=== PATIENT | male | born 1980 | race Caucasian/White ===

== ENCOUNTER 2019-07-12 09:00 | Emergency (ER) | payer OTHER ==
[2019-07-12 09:20] VITALS: BP 128/91; PULSE 99
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
== END 2019-07-12 10:13 | disposition home or self-care (01) ==
LOC: MW.ED 09:00
DX: Z77.21 Contact with and (suspected) exposure to potentially hazardous body fluids (principal)
CPT/HCPCS: 36415; 86706; 86803; 87340; 87389; 99282; 99283

== ENCOUNTER 2020-09-30 07:15 | Day surgery (SDC) | payer OTHER ==
[~2020-09-30 07:15] MED LIST: Lactated Ringers 1,000 ML IV SCH; Lidocaine 2% 5 ML SDV ONE; Midazolam 1 MG/ML 2 ML SDV ONE; Propofol 200 MG/20 ML SDV ONE; fentaNYL 100 MCG/2 ML SDV ONE
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
[2020-09-30] MEDS ORDERED: Propofol 200 MG/20 ML SDV ONE (09:10)
--- NOTE | 2020-09-30 10:21 | PCM.OPNOTE ---
- General Post-Op/Procedure Note Date of Surgery/Procedure: 09/30/20 Operative Procedure(s): colonoscopy with polypectomy. EGD with biopsies Findings: minimal duodenitis and gastritis Stomach polyps Colon polyps dictation number [id number] Pre Op Diagnosis: blood emesis. changing bowel habits Post-Op Diagnosis: minimal duodenitis and gastritis. Stomach polyps. Colon polyps Primary Surgeon: Andrez Melendez Complications: None Condition: Good
[2020-09-30 10:55] VITALS: BP 119/74; PULSE 60
--- NOTE | 2020-09-30 11:00 | PCM.POSTAN ---
POST ANESTHESIA ASSESSMENT - MENTAL STATUS Mental Status: Alert (no anesthetic problems), Oriented - VITAL SIGNS Vital Signs: Last Vital Signs Temp 97.2 F 09/30/20 10:42 Pulse 60 09/30/20 10:42 Resp 15 09/30/20 10:42 BP 119/74 09/30/20 10:42 Pulse Ox 98 09/30/20 10:42 - RESPIRATORY Respiratory Status: Respiratory Rate WNL, Airway Patent, O2 Saturation Stable - CARDIOVASCULAR CV Status: Pulse Rate WNL, Blood Pressure Stable - GASTROINTESTINAL GI Status: No Symptoms - POST OP HYDRATION Hydration Status: Adequate & Stable
--- NOTE | 2020-09-30 12:41 | PCM48HPAN ---
Post Anesthesia Note - EVALUATION WITHIN 48HRS OF ANESTHETIC Vital Signs in Normal Range: Yes Patient Participated in Evaluation: Yes Respiratory Function Stable: Yes Airway Patent: Yes Cardiovascular Function Stable: Yes Hydration Status Stable: Yes Pain Control Satisfactory: Yes Nausea and Vomiting Control Satisfactory: Yes Mental Status Recovered: Yes Vital Signs: Last Vital Signs Temp 97.2 F 09/30/20 10:42 Pulse 60 09/30/20 10:42 Resp 15 09/30/20 10:42 BP 119/74 09/30/20 10:42 Pulse Ox 98 09/30/20 10:42
--- NOTE | 2020-09-30 18:23 | OR ---
SURGEON: OSCAR ELLIS MD DATE OF PROCEDURE: 09/30/2020 PREOPERATIVE DIAGNOSES: 1. History of vomiting up blood. 2. Changing bowel habits. 3. Weight loss. PROCEDURES PERFORMED: 1. Esophagogastroduodenoscopy with biopsy. 2. Colonoscopy with polypectomy. PRIMARY SURGEON: Oscar Ellis MD ANESTHESIA: With the anesthesiologist. EXTENT OF THE COLONOSCOPY: To the cecum. EXTENT OF THE ESOPHAGOGASTRODUODENOSCOPY: To the second part of the duodenum. BOWEL PREP: Very good. LIMITATIONS: None. POSTOPERATIVE DIAGNOSES: 1. Some minimal gastritis and duodenitis. 2. Two small stomach polyps. 3. One small colon polyp, likely hyperplastic. REASON FOR PROCEDURE: The patient is a pleasant 40-year-old gentleman who says that several weeks ago, he had an episode of bloody emesis. He was treated with a PPI and Carafate. He says he was feeling back to normal. He says he does get this issue with bloody emesis every once in a while. He has had about three to four episodes over the last 14 years. He says it always has been related to a stomach ulcer. He also says his stools were a little bit looser at the time, but now have come back to normal. He also had a slight weight loss. The patient says he is now gaining weight again. PROCEDURE IN DETAIL: Physical exam was performed. Major risks and benefits associated with procedure were explained in detail to the patient. The patient verbalized understanding and is in agreement of the same. The patient was connected to the appropriate monitoring devices and IV was started. EKG, pulse oximetry, blood pressure, and capnography were monitored throughout the procedure. Continuous oxygen and sedation were provided by the anesthesiologist. The patient was placed left lateral decubitus position and sedation began. After adequate sedation was achieved, an upper endoscope was advanced under direct visualization without difficulty in the upper GI tract. The anatomy and mucosa of the esophagus, GE junction, stomach, pylorus, and at least the second part of the duodenum were inspected. Second part of the duodenum appeared normal. Pulling back in the first part of duodenum, some slight irritation, some minimal duodenitis. Did do some biopsies of this. The scope was brought into the stomach. The patient did have a small amount of tissue buildup, maybe getting a polyp right at the pylorus, and this was removed with a biopsy forceps. Both retro and antegrade views of the stomach were done. Had some minimal gastritis in the antrum area. Did do another biopsy of the antrum to check for H pylori. The patient did have two polyps in the stomach. These were small. These were also removed with cold biopsy polypectomy. Scope was brought through the GE junction. Did have a good squamocolumnar junction. His GE junction was approximately 38 cm from the incisor. Scope was brought back into the stomach. The stomach was desufflated. Scope was brought to the esophagus. Esophagus appeared normal. Scope was completely removed and the procedure was terminated. Now, gloves and scopes were changed. Now, a rectal exam was performed. No rectal masses or polyps were felt. Now, a well-lubricated Olympus colonoscope was inserted into the rectum and advanced under direct visualization to the cecum. Cecum was identified by both visual and anatomic landmarks. Photographs were taken of the cecal cap. Scope was then slowly withdrawn in somewhat circular fashion looking at the color, texture, anatomy, and integrity of the mucosa from the cecum to the anal canal. The patient did have some liquid stool which was suctioned and irrigated out for a good look at the mucosa. The patient did have a small polyp at about 20 cm, this was removed with cold biopsy polypectomy. This looked to be more of a hyperplastic polyp. The scope was then retroflexed in the rectum. Scope was then completely removed and the procedure was terminated. ENDOSCOPIC DIAGNOSES: 1. Some minimal duodenitis and gastritis. 2. Stomach polyp x2. 3. Small colon polyp at 20 cm, likely hyperplastic. RECOMMENDATIONS: 1. Followup colonoscopy will depend on pathology, but most likely he will need another one in five to 10 years. 2. The patient will follow up in the clinic to go over his EGD pathology. The patient should continue taking his PPI. JESSIE / AMALIA /[id number]
== END 2020-09-30 11:20 | disposition home or self-care (01) ==
LOC: MW.SDS 07:15
PROVIDERS: ATTEND Surgery
DX: K63.5 Polyp of colon (principal); K29.90 Gastroduodenitis, unspecified, without bleeding; K31.7 Polyp of stomach and duodenum; Z79.899 Other long term (current) drug therapy; Z98.890 Other specified postprocedural states
CPT/HCPCS: 43239; 45380; 88305; 88312; J2250; J2704; J3010; J7120; 00813

== ENCOUNTER 2020-12-03 03:59 | Emergency (ER) | payer OTHER ==
[2020-12-03] MEDS ORDERED: Ketorolac 15 MG/ML SDV IM ONE (04:14)
[2020-12-03 04:20] VITALS: BP 124/82; PULSE 91
--- NOTE | 2020-12-03 04:46 | EDM.PDOC ---
ED HPI GENERAL MEDICAL PROBLEM - General Chief Complaint: Lower Extremity Injury/Pain Stated Complaint: RIGHT FOOT PAIN Time Seen by Provider: 12/03/20 04:04 - History of Present Illness INITIAL COMMENTS - FREE TEXT/NARRATIVE: CHIEF COMPLAINT(S): Right foot pain HISTORY OF PRESENT ILLNESS: This is a 40-year-old man without any significant past medical history who comes to the emergency department with a chief complaint of right foot pain. The patient states that last night he was at his softball game when he was running he felt a pop near his right big toe and has been experiencing pain since then. He states that he went to work however he had to use both of his feet to drive his vehicle. He denies any numbness, tingling or weakness. He states that he has been able to ambulate on it although it is painful. He states that his pain is 8 out of 10 without any radiation and describes it as sharp/achy. He states that he took ibuprofen and Aleve without any significant relief. He has not iced it yet. He denies any other injury or pain. Denies any swelling, bruising, redness or deformity. REVIEW OF SYSTEMS: Skin:Denies a rash, bruising MSK: Positive for right foot pain and right big toe pain neurological: Denies numbness, tingling, weakness PAST MEDICAL HISTORY: As per history of present illness and as reviewed below otherwise noncontributory. SURGICAL HISTORY: As per history of present illness and as reviewed below otherwise noncontributory. SOCIAL HISTORY: As per history of present illness and as reviewed below otherwise noncontributory. FAMILY HISTORY: As per history of present illness and as reviewed below otherwise noncontributory. EXAMINATION OF ORGAN SYSTEMS/BODY AREAS: Constitutional: Blood pressure is 124/82, heart rate 91, respiratory rate 18 with an oxygen saturation 96% on room air. Temperature 36.4 General: Well-appearing man who is in no acute distress Psychiatric: Appropriate mood and affect. Eyes: No scleral icterus or conjunctival erythema ENMT: Moist mucous membranes. No pharyngeal erythema Cardiovascular: Regular, rate, and rhythm. No gallops, murmurs, or rubs. Bilateral upper extremity and lower extremity pulses symmetric and intact. Musculoskeletal: The patient is able to flex and extend at the ankle. There is no medial or lateral malleoli or tenderness. There is no base of the fifth metatarsal tenderness of the right foot. There is tenderness to palpation along the big toe on the medial side and inferior side. There is some swelling to the base of the right big toe without bruising. No obvious deformity. The patient can flex the big toe but is having difficulty with extension secondary to pain Skin: No lesions or abrasions. Neurological: Alert, GCS 15 distal sensation is intact. MEDICAL DECISION MAKING AND COURSE IN THE ED WITH INTERPRETATION/REVIEW OF DIAGNOSTIC STUDIES: This is a 40-year-old man without any significant past medical history who comes to the emergency department with right foot pain after an injury while at baseball. There is some tenderness along the right big toe without any obvious deformity. Will obtain a ankle and foot x-ray. I did offer the patient Toradol, Tylenol and other pain medications and he did not want any at this time. Therefore I provided the patient with ice. The radiological images were viewed by myself along with reading the report from the radiologist. Right foot x-ray does not reveal any fracture or dislocation. Right ankle x-ray does not reveal any fracture or dislocation. After imaging I did discuss with the patient that I do believe he is experiencing what is called turf toe. I did discuss limitations, use of RICE. I did provide the patient with a work excuse so that he can rest through the weekend. He is to use scheduled Tylenol and Motrin for pain relief. If there is no improvement he needs to follow-up with podiatry for further evaluation and treatment. He was amenable discharge at this time and had no further questions. DISPOSITION: The patient was discharged home in stable condition. The patient will follow up with podiatry within 1 week if needed CONDITION: Fair PROCEDURES: None FINAL IMPRESSION(S)/DIAGNOSES: 1. Acute right turf toe Jorgito Oshea M.D. Right Foot Pain Score (Numeric/FACES): 8 - Related Data Allergies Allergy/AdvReac Type Severity Reaction Status Date / Time No Known Allergies Allergy Verified 12/03/20 04:13 Home Meds: Home Meds . [No Known Home Meds] 12/03/20 [History] Past Medical History - Past Health History Medical/Surgical History: Denies Medical/Surgical History HEENT History: Reports: None Cardiovascular History: Reports: None Respiratory History: Reports: None Gastrointestinal History: Reports: Other (See Below) Other Gastrointestinal History: stomach ulcer Genitourinary History: Reports: None Musculoskeletal History: Reports: Fracture, Other (See Below) Other Musculoskeletal History: hx fx ribs, arms, leg and collarbone Neurological History: Reports: Concussion Psychiatric History: Reports: None, PTSD Endocrine/Metabolic History: Reports: None Hematologic History: Reports: None Immunologic History: Reports: None Oncologic (Cancer) History: Reports: None Dermatologic History: Reports: None - Infectious Disease History Infectious Disease History: Reports: None - Past Surgical History Head Surgeries/Procedures: Reports: None HEENT Surgical History: Reports: None Cardiovascular Surgical History: Reports: None Respiratory Surgical History: Reports: None GI Surgical History: Reports: Hernia, Inguinal Other GI Surgeries/Procedures: shefali inguinal hernia repair as a infant Male Surgical History: Reports: None Endocrine Surgical History: Reports: None Neurological Surgical History: Reports: None Musculoskeletal Surgical History: Reports: Arthroscopic Knee Other Musculoskeletal Surgeries/Procedures:: hx closed reduction of fx, hx knee arthroscopy Oncologic Surgical History: Reports: None Dermatological Surgical History: Reports: None Social & Family History - Family History Family Medical History: No Pertinent Family History - Caffeine Use Caffeine Use: Reports: Coffee, Energy Drinks, Soda - Recreational Drug Use Recreational Drug Use: No Review of Systems - Review of Systems Review Of Systems: See Below ED EXAM, GENERAL - Physical Exam Exam: See Below Course - Vital Signs Last Recorded V/S: Last Vital Signs Temp 36.4 C 12/03/20 04:02 Pulse 91 12/03/20 04:02 Resp 18 12/03/20 04:02 BP 124/82 12/03/20 04:02 Pulse Ox 96 12/03/20 04:02 - Orders/Labs/Meds Meds: Medications Discontinued Medications Generic Name Dose Route Start Last Admin Trade Name Freq PRN Reason Stop Dose Admin Ketorolac Tromethamine 30 mg 12/03/20 04:14 Ketorolac 15 Mg/Ml Sdv IM 12/03/20 04:15 ONETIME ONE Departure - Departure Time of Disposition: 05:20 Disposition: Home, Self-Care 01 Clinical Impression: Turf toe of right foot - Discharge Information *PRESCRIPTION DRUG MONITORING PROGRAM REVIEWED*: No *COPY OF PRESCRIPTION DRUG MONITORING REPORT IN PATIENT FIONA: No Instructions: Turf Toe Referrals: PCP,None [Primary Care Provider] - Forms: ED Department Discharge Additional Instructions: You were evaluated today on an emergent basis. At this time your imaging did not reveal any fractures of your foot or ankle. At this time I do believe you are experiencing what is called "turf toe." This is when you sprain the joint of your big toe. You are able to move your toe which is reassuring. So at this point I recommend that you use ice 20 minutes 4 times a day, keep your right lower extremity elevated at heart level, and use Motrin 400 mg to 600 mg every 6 hours scheduled for the next 3 to 4 days. You may alternate with Tylenol. As discussed if you have continued pain I would like you to follow-up with podiatry . You may call them at the number below for a follow-up appointment. Please use: Tylenol 500-1000mg every 6 hours (DO NOT TAKE MORE THAN 4000mg in 1 day) Ibuprofen 400mg every 6 hours (Take with food as it can cause ulcers, GI upset) Example schedule: 8:00 AM (Tylenol 500-1000mg) 11:00 AM (Ibuprofen 400mg) 2:00 PM (Tylenol 500-1000mg) 5:00 PM (Ibuprofen 400mg) Ice the area 20 minutes 4 times per day Pod[address]ry Dr[address] López [phone] The patient is informed of any results of their evaluation and diagnostic workup and all questions are answered. They are given discharge instructions and return precautions. The patient is stable for discharge. The patient states they understand and agree with the plan and that they will return if their symptoms get worse or if they have any new concerns. The following information is given to patients seen in the emergency department who are being discharged to home. This information is to outline your options for follow-up care. We provide all patients seen in our emergency department with a follow-up referral. The need for follow-up, as well as the timing and circumstances, are variable depending upon the specifics of your emergency department visit. If you don't have a primary care physician on staff, we will provide you with a referral. We always advise you to contact your personal physician following an emergency department visit to inform them of the circumstance of the visit and for follow-up with them and/or the need for any referrals to a consulting specialist. The emergency department will also refer you to a specialist when appropriate. This referral assures that you have the opportunity for follow-up care with a specialist. All of these measure are taken in an effort to provide you with optimal care, which includes your follow-up. Under all circumstances we always encourage you to contact your private physician who remains a resource for coordinating your care. When calling for follow-up care, please make the office aware that this follow-up is from your recent emergency room visit. If for any reason you are refused follow-up, please contact the [facility] Emergency Department at and asked to speak to the emergency department charge nurse. Sepsis Event Note (ED) - Evaluation Sepsis Screening Result: No Definite Risk - Focused Exam Vital Signs: Vital Signs Temp Pulse Resp BP Pulse Ox 12/03/20 04:02 36.4 C 91 18 124/82 96
--- NOTE | 2020-12-03 05:06 | CR ---
Indication: Ankle injury Technique: Three views Comparison: None Findings: Bones: Alignment is normal. No fractures or bone lesions. Joint spaces: Unremarkable. Soft tissues: Unremarkable. Dictated by Joseph Bahena MD @ 12/03/2020 5:04:[address] Joseph Bahena @ Dec 03 2020 5:04AM
--- NOTE | 2020-12-03 05:08 | CR ---
Indication: Foot injury, pain Technique: Three views Comparison: None Findings: Bones: Alignment is normal. No fractures or bone lesions. Joint spaces: Unremarkable. Soft tissues: Unremarkable. Dictated by Joseph Bahena MD @ 12/03/2020 5:08:[address] Joseph Bahena @ Dec 03 2020 5:08AM
== END 2020-12-03 05:30 | disposition home or self-care (01) ==
LOC: MW.ED 03:59
DX: M79.674 Pain in right toe(s) (principal)
CPT/HCPCS: 73610-26-RT; 73610-RT; 73630-26-RT; 73630-RT; 99283; 99283-25

== ENCOUNTER 2021-10-08 08:13 | Emergency (ER) | payer OTHER ==
[2021-10-08] MEDS ORDERED: Lidocaine 1% 5 ML VIAL INJECT ONE (08:33)
[2021-10-08] MEDS ORDERED: Ketorolac 30 MG/ML SDV IM ONE (08:34)
[2021-10-08] MEDS ORDERED: Doxycycline 100 MG Cap PO STA (08:45)
[2021-10-08] MEDS ORDERED: Ketorolac 10 MG Tab PO ONE (08:54)
[2021-10-08] MEDS ORDERED: Ibuprofen 800 MG Tab PO ONE (08:55)
[2021-10-08] MEDS ORDERED: Ibuprofen 800 MG Tab ONE (08:56)
[2021-10-08 09:55] VITALS: BP 121/71; PULSE 77
== END 2021-10-08 09:30 | disposition home or self-care (01) ==
LOC: MW.ED 08:13
DX: L03.114 Cellulitis of left upper limb (principal); M70.22 Olecranon bursitis, left elbow
CPT/HCPCS: 73080; 99283; A9270